=== PATIENT | male | born 1980 ===

== ENCOUNTER 2016-09-16 23:50 | Emergency (ER) | payer SELFPAY ==
[~2016-09-16] VITALS: Ht 172.7 cm; Wt 64.0 kg
[2016-09-16 23:53] VITALS: Ht 172.7 cm; Wt 64.0 kg
== END 2016-09-17 04:54 | disposition left against medical advice (07) ==
LOC: FTE 23:50
DX: Z53.21 Procedure and treatment not carried out due to patient leaving prior to being seen by health care provider (principal)